=== PATIENT | female | born 1950 | race Caucasian/White ===

== ENCOUNTER 2020-01-11 20:15 | Inpatient (IN) ==
[2020-01-11 20:45] LABS: Basophils # 0.1 K/mcL (0.0-0.2); Basophils % 0.3 %; Eosinophils # 0.1 K/mcL (0.0-0.6); Eosinophils % 0.4 %; Hematocrit 40.1 % (35.3-44.9); Hemoglobin 12.9 g/dL (11.5-15.4); Immature Granulocytes % 0.9 % (0-4); Lymphocytes % 11.4 %; Mean Corpuscular HGB Conc 32.2 g/dL (31.6-35.5); Mean Corpuscular Hemoglobin 27.6 pg (28.0-33.3); Mean Corpuscular Volume 85.7 fL (83.0-100.0); Mean Platelet Volume 8.8 fL (9.4-12.4); Monocytes # 1.2 K/mcL (0.0-1.3); Monocytes % 6.4 %; Neutrophils # 14.4 K/mcL (1.6-8.9); Platelet Count 421 K/mcL (140-400); Red Blood Count 4.68 M/mcL (3.82-4.97); Red Cell Distribution Width 13.2 % (11.5-14.5); Segmented Neutrophils % 80.6 %; White Blood Count 17.9 K/mcL (4.3-11.1)
[2020-01-11] MEDS ORDERED: Isovue-370 500 ML BOTTLE IVP ONE (21:05)
[2020-01-11 21:09] LABS: Alanine Aminotransferase 12 Units/L (7-52); Albumin 3.8 g/dL (3.5-5.7); Albumin/Globulin Ratio 1.1 (1.1-2.2); Alkaline Phosphatase 80 Units/L (34-104); Aspartate Amino Transferase 14 Units/L (13-39); BUN/Creatinine Ratio 19 (6-26); Bilirubin,Direct 0.1 mg/dL (0.0-0.2); Bilirubin,Indirect 0.2 mg/dL (0.0-1.0); Bilirubin,Total 0.3 mg/dL (0.3-1.0); Blood Urea Nitrogen 15 mg/dL (8-23); Calcium 9.6 mg/dL (8.6-10.3); Carbon Dioxide 27 mEq/L (23-29); Chloride 95 mEq/L (98-107); Globulin 3.6 g/dL (2.4-3.5); Glucose 109 mg/dL (70-105); Osmolality,Calculated 281 (280-300); Potassium 3.4 mEq/L (3.5-5.1); Sodium 135 mEq/L (136-145); Total Protein 7.4 g/dL (6.4-8.9); Troponin I < 0.03 ng/mL (< 0.04); eGFR For African Americans > 60 (> 60); eGFR For Non-African Americans > 60 (> 60)
[2020-01-11] MEDS ORDERED: Piperacillin/Tazobactam 3.375 GM in 0.9 % Sodium Chloride Mini Bag 100 ML IVPB ONE (22:21)
[2020-01-11] MEDS ORDERED: Ondansetron 4 MG/2 ML VIAL IVP PRN (23:32)
[2020-01-12] MEDS ORDERED: Naloxone 0.4 MG/ML INJ IVP PRN (01:16)
[2020-01-12] MEDS ORDERED: 0.9 % Sodium Chloride 1,000 ML IVC SCH (01:30)
[2020-01-12] MEDS ORDERED: Azithromycin 500 MG in 0.9 % Sodium Chloride 250 ML IVPB SCH (02:00)
[2020-01-12 02:32] LABS: Basophils % 0.3 %; Eosinophils # 0.1 K/mcL (0.0-0.6); Eosinophils % 0.5 %; Hematocrit 36.9 % (35.3-44.9); Hemoglobin 11.7 g/dL (11.5-15.4); Immature Granulocytes % 0.6 % (0-4); Lymphocytes # 1.7 K/mcL (0.6-4.6); Mean Corpuscular HGB Conc 31.7 g/dL (31.6-35.5); Mean Corpuscular Hemoglobin 27.5 pg (28.0-33.3); Mean Corpuscular Volume 86.6 fL (83.0-100.0); Mean Platelet Volume 8.9 fL (9.4-12.4); Monocytes # 0.9 K/mcL (0.0-1.3); Monocytes % 6.4 %; Neutrophils # 11.5 K/mcL (1.6-8.9); Platelet Count 387 K/mcL (140-400); Red Blood Count 4.26 M/mcL (3.82-4.97); Red Cell Distribution Width 13.3 % (11.5-14.5); Segmented Neutrophils % 80.2 %; White Blood Count 14.4 K/mcL (4.3-11.1)
[2020-01-12 02:33] LABS: INR 1.1
[2020-01-12 02:50] LABS: Alanine Aminotransferase 7 Units/L (7-52); Albumin 2.4 g/dL (3.5-5.7); Albumin/Globulin Ratio 1.1 (1.1-2.2); Alkaline Phosphatase 51 Units/L (34-104); Aspartate Amino Transferase 9 Units/L (13-39); BUN/Creatinine Ratio 22 (6-26); Bilirubin,Total 0.2 mg/dL (0.3-1.0); Blood Urea Nitrogen 10 mg/dL (8-23); Calcium 6.5 mg/dL (8.6-10.3); Carbon Dioxide 24 mEq/L (23-29); Chloride 108 mEq/L (98-107); Globulin 2.2 g/dL (2.4-3.5); Glucose 93 mg/dL (70-105); Osmolality,Calculated 287 (280-300); Potassium 2.7 mEq/L (3.5-5.1); Sodium 139 mEq/L (136-145); Total Protein 4.6 g/dL (6.4-8.9); eGFR For African Americans > 60 (> 60); eGFR For Non-African Americans > 60 (> 60)
[2020-01-12 02:53] LABS: Activated Partial Thrombo Time 25.9 Seconds (26.0-36.0)
[2020-01-12] MEDS ORDERED: Albuterol 2.5 MG/3 ML NEBULIZER IH SCH (04:00)
[2020-01-12] MEDS: Ipratropium 1 PUFF INHALER IH SCH ×6 (04:02→23:03)
[2020-01-12 04:13] LABS: ABG Base Excess 4 mEq/L (-2 to 3); ABG HCO3 31 mEq/L (21-27); ABG Oxygen Saturation 94 % (95-98); ABG PCO2 54 mmHg (35-45); ABG PH 7.36 pH Units (7.32-7.45); ABG PO2 77 mmHg (85-104); ABG TCO2 32 mEq/L (20-26)
[2020-01-12] MEDS ORDERED: Ondansetron 4 MG/2 ML VIAL IVP PRN (06:00)
[2020-01-12] MEDS: Piperacillin/Tazobactam 3.375 GM in 0.9 % Sodium Chloride Mini Bag 100 ML IVPB SCH ×2 (07:35→16:06)
[2020-01-12] MEDS ORDERED: Piperacillin/Tazobactam 3.375 GM in 0.9 % Sodium Chloride Mini Bag 100 ML IVPB SCH (08:00)
[2020-01-12] MEDS ORDERED: *HR* Heparin 5,000 UNIT/ML VIAL SQ SCH (08:00)
[2020-01-12 10:10] LABS: Adenovirus Not Detected (Not Detect); Bordetella Pertussis Not Detected (Not Detect); Chlamydophila pneumoniae Not Detected (Not Detect); Coronavirus 229E Not Detected (Not Detect); Coronavirus HKU1 Not Detected (Not Detect); Coronavirus NL63 Not Detected (Not Detect); Coronavirus OC43 Not Detected (Not Detect); Human Metapneumovirus Not Detected (Not Detect); Human Rhinovirus/Enterovirus Not Detected (Not Detect); Influenza A Subtype 2009 H1 Not Detected (Not Detect); Influenza B Not Detected (Not Detect); Mycoplasma pneumoniae Not Detected (Not Detect); Parainfluenza Virus 1 Not Detected (Not Detect); Parainfluenza Virus 2 Not Detected (Not Detect); Parainfluenza Virus 3 Not Detected (Not Detect); Parainfluenza Virus 4 Not Detected (Not Detect); Respiratory Syncytial Virus Not Detected (Not Detect)
[2020-01-12] MEDS: *HR* OxyCODONE Immed Rel 5 MG TABLET PO PRN ×2 (12:10→22:57)
[2020-01-12] MEDS: Budesonide/Formoterol 160/4.5 1 PUFF INH IH SCH ×2 (15:39→19:48)
[2020-01-12] MEDS: MethylPREDNISolone 40 MG/ML VIAL IVP SCH ×2 (16:06→18:18)
[2020-01-12] MEDS: Aspirin Enteric Coated 81 MG Tablet PO SCH (16:06)
[2020-01-13] MEDS: Piperacillin/Tazobactam 3.375 GM in 0.9 % Sodium Chloride Mini Bag 100 ML IVPB SCH ×2 (00:03→08:48)
[2020-01-13] MEDS: MethylPREDNISolone 40 MG/ML VIAL IVP SCH ×2 (00:05→05:33)
[2020-01-13] MEDS: Ipratropium 1 PUFF INHALER IH SCH ×6 (04:08→23:37)
[2020-01-13 05:07] LABS: Basophils % 0.2 %; Immature Granulocytes % 0.8 % (0-4); Lymphocytes # 0.8 K/mcL (0.6-4.6); Lymphocytes % 6.1 %; Mean Corpuscular HGB Conc 31.6 g/dL (31.6-35.5); Mean Corpuscular Hemoglobin 27.5 pg (28.0-33.3); Mean Corpuscular Volume 87.2 fL (83.0-100.0); Mean Platelet Volume 8.8 fL (9.4-12.4); Monocytes # 0.1 K/mcL (0.0-1.3); Monocytes % 0.6 %; Neutrophils # 12.2 K/mcL (1.6-8.9); Platelet Count 382 K/mcL (140-400); Red Blood Count 4.36 M/mcL (3.82-4.97); Red Cell Distribution Width 13.3 % (11.5-14.5); Segmented Neutrophils % 92.3 %; White Blood Count 13.2 K/mcL (4.3-11.1)
[2020-01-13] MEDS: *HR* Enoxaparin 40 MG/0.4 ML SYRINGE SQ SCH (05:32)
[2020-01-13 06:09] LABS: BUN/Creatinine Ratio 24 (6-26); Blood Urea Nitrogen 14 mg/dL (8-23); Calcium 8.7 mg/dL (8.6-10.3); Carbon Dioxide 26 mEq/L (23-29); Chloride 102 mEq/L (98-107); Glucose 172 mg/dL (70-105); Magnesium 2.2 mg/dL (1.6-2.6); Osmolality,Calculated 281 (280-300); Sodium 133 mEq/L (136-145); eGFR For African Americans > 60 (> 60); eGFR For Non-African Americans > 60 (> 60)
[2020-01-13] MEDS: Budesonide/Formoterol 160/4.5 1 PUFF INH IH SCH ×2 (08:09→19:29)
[2020-01-13] MEDS: amLODIPine 5 MG TABLET PO SCH (08:50)
[2020-01-13] MEDS: Azithromycin 250 MG TABLET PO SCH (08:50)
[2020-01-13] MEDS: predniSONE 20 MG TABLET PO SCH (08:50)
[2020-01-13] MEDS: Aspirin Enteric Coated 81 MG Tablet PO SCH (08:50)
[2020-01-13] MEDS: *HR* OxyCODONE Immed Rel 5 MG TABLET PO PRN (16:15)
[2020-01-13] MEDS ORDERED: Famotidine 20 MG/2 ML VIAL IVP PRN (23:37)
[2020-01-14] MEDS: Ipratropium 1 PUFF INHALER IH SCH ×5 (03:30→19:49)
[2020-01-14] MEDS: *HR* Enoxaparin 40 MG/0.4 ML SYRINGE SQ SCH (05:47)
[2020-01-14] MEDS: Budesonide/Formoterol 160/4.5 1 PUFF INH IH SCH ×2 (07:50→19:50)
[2020-01-14 08:20] LABS: Basophils % 0.3 %; Hematocrit 33.4 % (35.3-44.9); Hemoglobin 10.8 g/dL (11.5-15.4); Immature Granulocytes % 1.5 % (0-4); Lymphocytes # 1.8 K/mcL (0.6-4.6); Lymphocytes % 13.2 %; Mean Corpuscular HGB Conc 32.3 g/dL (31.6-35.5); Mean Corpuscular Hemoglobin 28.3 pg (28.0-33.3); Mean Corpuscular Volume 87.4 fL (83.0-100.0); Mean Platelet Volume 8.6 fL (9.4-12.4); Monocytes # 0.8 K/mcL (0.0-1.3); Monocytes % 5.7 %; Platelet Count 386 K/mcL (140-400); Red Blood Count 3.82 M/mcL (3.82-4.97); Red Cell Distribution Width 13.4 % (11.5-14.5); Segmented Neutrophils % 79.3 %; White Blood Count 13.9 K/mcL (4.3-11.1)
[2020-01-14 08:42] LABS: BUN/Creatinine Ratio 24 (6-26); Blood Urea Nitrogen 12 mg/dL (8-23); Carbon Dioxide 29 mEq/L (23-29); Chloride 100 mEq/L (98-107); Glucose 103 mg/dL (70-105); Osmolality,Calculated 292 (280-300); Potassium 4.1 mEq/L (3.5-5.1); Sodium 141 mEq/L (136-145); eGFR For African Americans > 60 (> 60); eGFR For Non-African Americans > 60 (> 60)
[2020-01-14] MEDS: amLODIPine 5 MG TABLET PO SCH (09:40)
[2020-01-14] MEDS: Aspirin Enteric Coated 81 MG Tablet PO SCH (09:41)
[2020-01-14] MEDS: predniSONE 20 MG TABLET PO SCH (09:50)
[2020-01-14] MEDS: *HR* OxyCODONE Immed Rel 5 MG TABLET PO PRN ×2 (09:50→21:08)
[2020-01-14] MEDS: Azithromycin 250 MG TABLET PO SCH (09:50)
[2020-01-14] MEDS ORDERED: *HR* HYDROmorphone PF 0.5 MG/0.5 ML SYRINGE IVP PRN (11:48)
[2020-01-14] MEDS ORDERED: Ondansetron 4 MG/2 ML VIAL IVP ONE ×2 (11:48→16:26)
[2020-01-14] MEDS ORDERED: *HR* Propofol 200 MG/20 ML VIAL IVP ONE ×3 (12:15→15:18)
[2020-01-14] MEDS ORDERED: *HR* FentaNYL (PF) 100 MCG/2 ML VIAL ONE ×2 (12:17→13:30)
[2020-01-14] MEDS ORDERED: Lidocaine HCL 4 ML Topical Solution (Laryng-O-Jet Kit Sterile Pak) TP ONE (12:18)
[2020-01-14] MEDS ORDERED: *HR* Succinylcholine 200 MG/10 ML VIAL IVP ONE (13:33)
[2020-01-14] MEDS ORDERED: Lidocaine -MPF 2% 2 ML VIAL ONE (13:33)
[2020-01-14] MEDS ORDERED: EPHEDrine 50 MG/ML VIAL ONE (14:51)
[2020-01-14] MEDS ORDERED: Ondansetron 4 MG/2 ML VIAL ONE (14:59)
[2020-01-14] MEDS ORDERED: Dexamethasone 4 MG/ML VIAL ONE (14:59)
[2020-01-14] MEDS ORDERED: *HR* PHENYLEPHRINE 1,000 MCG/10 ML SYRINGE IVP ONE (15:05)
[2020-01-14] MEDS ORDERED: Famotidine 20 MG/2 ML VIAL IVP PRN (16:26)
[2020-01-14] MEDS ORDERED: Ondansetron 4 MG/2 ML VIAL IVP PRN (16:26)
[2020-01-14] MEDS ORDERED: Naloxone 0.4 MG/ML INJ IVP PRN (16:26)
[2020-01-14] MEDS ORDERED: Isovue-370 500 ML BOTTLE IVP ONE (16:28)
[2020-01-14] MEDS ORDERED: Menthol 9.1 MG LOZENGE PO PRN (16:28)
[2020-01-15] MEDS: Ipratropium 1 PUFF INHALER IH SCH ×7 (00:20→23:31)
[2020-01-15] MEDS: *HR* Enoxaparin 40 MG/0.4 ML SYRINGE SQ SCH (05:59)
[2020-01-15] MEDS: Budesonide/Formoterol 160/4.5 1 PUFF INH IH SCH ×2 (07:46→19:45)
[2020-01-15] MEDS: Azithromycin 250 MG TABLET PO SCH (09:37)
[2020-01-15] MEDS: Aspirin Enteric Coated 81 MG Tablet PO SCH (09:38)
[2020-01-15] MEDS: amLODIPine 5 MG TABLET PO SCH (09:38)
[2020-01-15] MEDS: *HR* OxyCODONE Immed Rel 5 MG TABLET PO PRN ×3 (09:38→20:50)
[2020-01-15] MEDS: predniSONE 20 MG TABLET PO SCH (09:38)
[2020-01-16] MEDS: Ipratropium 1 PUFF INHALER IH SCH ×4 (03:36→16:19)
[2020-01-16] MEDS: *HR* Enoxaparin 40 MG/0.4 ML SYRINGE SQ SCH (05:47)
[2020-01-16] MEDS: Budesonide/Formoterol 160/4.5 1 PUFF INH IH SCH (07:41)
[2020-01-16] MEDS: predniSONE 20 MG TABLET PO SCH (10:04)
[2020-01-16] MEDS: Azithromycin 250 MG TABLET PO SCH (10:04)
[2020-01-16] MEDS: amLODIPine 5 MG TABLET PO SCH (10:05)
[2020-01-16] MEDS: Aspirin Enteric Coated 81 MG Tablet PO SCH (10:05)
[2020-01-16] MEDS: *HR* OxyCODONE Immed Rel 5 MG TABLET PO PRN (11:18)
[2020-01-16 15:14] VITALS: BP 108/68
[2020-01-16] MEDS ORDERED: Aminoglycoside Consult 1 EACH MC ONE (16:27)
[2020-01-17 10:47] LABS: Immunoglobulin A 213 mg/dL (68-408); Immunoglobulin G 625 mg/dL (768-1632); Immunoglobulin M 126 mg/dL (35-263)
== END 2020-01-16 16:28 | disposition home health service (06) | DRG 853 ==
LOC: 2NENU 20:15 → EMEROOARM 20:15 → SUATTDRO 01-12 01:16 → 2NENU 01-12 01:16 → 3ANU 01-13 22:15
PROVIDERS: ADMIT Student in an Organized Health Care Education/Training Program; ATTEND Internal Medicine

== ENCOUNTER 2021-05-28 12:59 | Inpatient (IN) ==
[2021-05-28 15:28] LABS: Basophils % 0.3 %; Eosinophils # 0.1 K/mcL (0.0-0.6); Hematocrit 41.4 % (35.3-44.9); Hemoglobin 13.5 g/dL (11.5-15.4); Immature Granulocytes % 0.4 % (0-4); Lymphocytes # 1.6 K/mcL (0.6-4.6); Lymphocytes % 24.1 %; Mean Corpuscular HGB Conc 32.6 g/dL (31.6-35.5); Mean Corpuscular Hemoglobin 28.1 pg (28.0-33.3); Mean Corpuscular Volume 86.1 fL (83.0-100.0); Mean Platelet Volume 8.7 fL (9.4-12.4); Monocytes # 0.5 K/mcL (0.0-1.3); Monocytes % 7.7 %; Neutrophils # 4.5 K/mcL (1.6-8.9); Platelet Count 260 K/mcL (140-400); Red Blood Count 4.81 M/mcL (3.82-4.97); Red Cell Distribution Width 13.4 % (11.5-14.5); Segmented Neutrophils % 66.5 %; White Blood Count 6.7 K/mcL (4.3-11.1)
[2021-05-28 15:42] LABS: Bilirubin,Urine Negative (Negative); Blood,Urine Trace (Negative); Clarity,Urine Clear (Clear); Color,Urine Light-Yellow (Yellow); Glucose,Urine (UA) Normal (Normal); Ketones,Urine Negative (Negative); Leukocyte Esterase,Urine Negative (Negative); Mucus,Urine Few per lpf (None-Few); Nitrite,Urine Negative (Negative); Protein,Urine Trace mg/dL (Neg-Trace); RBC,Urine 0-3 per hpf (0-3); Specific Gravity,Urine 1.029 (1.010-1.025); Squamous Epithelial Cell,Urine Few per hpf (None-Few); Urobilinogen,Urine Normal (Normal); WBC,Urine 0-3 per hpf (0-3)
[2021-05-28 16:15] LABS: Amphetamine Screen,Urine Negative ng/mL (Cutoff=1000); Barbiturate Screen,Urine Negative ng/mL (Cutoff=200); Benzodiazepines Screen,Urine Negative ng/mL (Cutoff=200); Cannabinoid Screen,Urine Negative ng/mL (Cutoff = 50); Cocaine Screen,Urine Negative ng/mL (Cutoff= 300); Opiate Screen,Urine Negative ng/mL (Cutoff=300); Phencyclidine Screen,Urine Negative ng/mL (Cutoff=25)
[2021-05-28 16:25] LABS: Alanine Aminotransferase 13 Units/L (7-52); Albumin 4.2 g/dL (3.5-5.7); Alkaline Phosphatase 51 Units/L (34-104); Aspartate Amino Transferase 14 Units/L (13-39); BUN/Creatinine Ratio 38 (6-26); Bilirubin,Direct 0.1 mg/dL (0.0-0.2); Bilirubin,Indirect 0.3 mg/dL (0.0-1.0); Bilirubin,Total 0.4 mg/dL (0.3-1.0); Blood Urea Nitrogen 23 mg/dL (8-23); Calcium 9.9 mg/dL (8.6-10.3); Carbon Dioxide 30 mEq/L (23-29); Chloride 104 mEq/L (98-107); Ethanol < 10 mg/dL (Less than 10); Glucose 100 mg/dL (70-105); Osmolality,Calculated 296 (280-300); Potassium 3.8 mEq/L (3.5-5.1); Sodium 141 mEq/L (136-145); Thyroid Stimulating Hormone 0.792 mcIU/mL (0.340-5.600); Troponin I < 0.03 ng/mL (< 0.04); eGFR For African Americans > 60 (> 60); eGFR For Non-African Americans > 60 (> 60)
[2021-05-28 16:29] LABS: Influenza A PCR Negative (Negative); Influenza B PCR Negative (Negative); Resp. Syncytial Virus PCR Negative (Negative)
[2021-05-28 16:31] LABS: SARS-CoV-2 by PCR (In House) Negative (Negative)
[2021-05-28 17:17] LABS: Albumin/Globulin Ratio 1.5 (1.1-2.2); Globulin 2.8 g/dL (2.4-3.5)
[2021-05-28] MEDS ORDERED: Ipratropium/Albuterol Neb 3 ML ONE (17:48)
[2021-05-28] MEDS ORDERED: Perflutren Lipid Microsphere 1.3 ML in 0.9 % Sodium Chloride 8.7 ML IVP PRN (20:54)
[2021-05-28] MEDS ORDERED: Aspirin 325 MG TABLET PO ONE (21:33)
[2021-05-28] MEDS ORDERED: Budesonide/Formoterol 160/4.5 1 PUFF INH IH ONE (22:00)
[2021-05-29] MEDS ORDERED: Aspirin 325 MG TABLET PO ONE (00:47)
[2021-05-29 05:52] LABS: Hematocrit 37.1 % (35.3-44.9); Hemoglobin 12.1 g/dL (11.5-15.4); Mean Corpuscular HGB Conc 32.6 g/dL (31.6-35.5); Mean Corpuscular Hemoglobin 28.1 pg (28.0-33.3); Mean Corpuscular Volume 86.3 fL (83.0-100.0); Mean Platelet Volume 8.7 fL (9.4-12.4); Platelet Count 257 K/mcL (140-400); Red Cell Distribution Width 13.3 % (11.5-14.5); White Blood Count 5.9 K/mcL (4.3-11.1)
[2021-05-29 06:04] LABS: BUN/Creatinine Ratio 33 (6-26); Blood Urea Nitrogen 18 mg/dL (8-23); Calcium 9.2 mg/dL (8.6-10.3); Carbon Dioxide 27 mEq/L (23-29); Chloride 103 mEq/L (98-107); Chol/HDL Ratio 3.3 (0-4.9); Cholesterol 186 mg/dL (< 200); Glucose 91 mg/dL (70-105); HDL Cholesterol 56 mg/dL (40-59); LDL Cholesterol,Calculated 117 mg/dL (< 100); Osmolality,Calculated 285 (280-300); Potassium 3.7 mEq/L (3.5-5.1); Sodium 137 mEq/L (136-145); Triglycerides 67 mg/dL (< 150); eGFR For African Americans > 60 (> 60); eGFR For Non-African Americans > 60 (> 60)
[2021-05-29] MEDS ORDERED: Aspirin Enteric Coated 325 MG Tablet PO SCH (09:00)
[2021-05-29 09:19] LABS: Estimated Average Glucose 131 mg/dl; Hemoglobin A1C 6.2 %
[2021-05-30] MEDS: *HR* Enoxaparin 40 MG/0.4 ML SYRINGE SQ SCH (06:16)
[2021-05-30] MEDS ORDERED: Furosemide 20 MG TABLET PO PRN (07:31)
[2021-05-30] MEDS ORDERED: *HR* FentaNYL PATCH 25 MCG PATCH TD SCH (07:45)
[2021-05-30] MEDS ORDERED: Aspirin Enteric Coated 81 MG Tablet PO SCH (09:00)
[2021-05-30] MEDS: Anastrozole 1 MG TABLET PO SCH (09:22)
[2021-05-30] MEDS: amLODIPine 5 MG TABLET PO SCH (09:23)
[2021-05-30] MEDS ORDERED: Aspirin Enteric Coated 81 MG Tablet PO ONE (12:00)
[2021-05-30] MEDS: Budesonide/Formoterol 80/4.5 1 PUFF INH IH SCH ×2 (17:38→20:19)
[2021-05-31] MEDS: *HR* Enoxaparin 40 MG/0.4 ML SYRINGE SQ SCH (05:19)
[2021-05-31] MEDS: Budesonide/Formoterol 80/4.5 1 PUFF INH IH SCH (07:36)
[2021-05-31 07:39] VITALS: O2SAT 94
[2021-05-31] MEDS: amLODIPine 5 MG TABLET PO SCH (08:46)
[2021-05-31] MEDS: Anastrozole 1 MG TABLET PO SCH (08:46)
[2021-05-31] MEDS ORDERED: Aspirin Enteric Coated 325 MG Tablet PO SCH (09:00)
[2021-05-31 12:21] VITALS: BP 136/81; PULSE 91; TEMP 97.9
== END 2021-05-31 14:56 | disposition home or self-care (01) | DRG 65 ==
LOC: EMEROOARM 12:59 → 2ANU 12:59 → SUATTDRO 23:03 → 2ANU 23:40
PROVIDERS: ADMIT Internal Medicine; ATTEND Hospitalist

== ENCOUNTER 2021-06-24 08:53 | Inpatient (IN) ==
[~2021-06-24 08:53] MED LIST: Vancomycin 1,000 MG, Sodium Chloride IRRigation 1,000 ML IR ONE
[2021-06-24] MEDS ORDERED: CeFAZolin Syr 2,000MG/20 ML 2,000 MG/20 ML SYRINGE IVPB ONE (09:25)
[2021-06-24] MEDS ORDERED: Famotidine 20 MG/2 ML VIAL IVP ONE (09:28)
[2021-06-24] MEDS ORDERED: Acetaminophen IV 1,000 MG/100 ML BAG IVPB ONE (09:29)
[2021-06-24] MEDS ORDERED: Ringers Solution, Lactated 1,000 ML IVC SCH (09:30)
[2021-06-24] MEDS ORDERED: Vancomycin 1,250 MG/262.5 ML IV.SOLN IVPB ONE (09:45)
[2021-06-24] MEDS ORDERED: Lidocaine -MPF 2% 5 ML VIAL ONE ×2 (10:41→11:14)
[2021-06-24] MEDS ORDERED: *HR* FentaNYL (PF) 100 MCG/2 ML VIAL ONE ×2 (10:46→11:47)
[2021-06-24] MEDS ORDERED: Heparin 1,000 UNITS/500 mL 500 ML ONE ×2 (10:50→11:31)
[2021-06-24] MEDS ORDERED: *HR* Propofol 200 MG/20 ML VIAL IVP ONE (11:13)
[2021-06-24] MEDS ORDERED: Ondansetron 4 MG/2 ML VIAL ONE (11:14)
[2021-06-24] MEDS ORDERED: *HR* Succinylcholine 200 MG/10 ML VIAL IVP ONE (11:14)
[2021-06-24] MEDS ORDERED: *HR* Heparin 5,000 UNIT/ML VIAL ONE (11:14)
[2021-06-24] MEDS ORDERED: *HR* Norepinephrine 4 MG/4 ML VIAL IVC ONE (11:29)
[2021-06-24] MEDS ORDERED: *HR* Vasopressin 20 UNIT/ML VIAL ONE (11:29)
[2021-06-24] MEDS ORDERED: Protamine Sulfate 50 MG/5 ML VIAL IVP ONE (11:30)
[2021-06-24] MEDS ORDERED: Bupivacaine-MPF 0.25% 10 ML VIAL ONE (11:31)
[2021-06-24] MEDS ORDERED: *HR* Midazolam HCl 2 MG/2 ML VIAL ONE (11:47)
[2021-06-24] MEDS ORDERED: EPHEDrine 50 MG/ML VIAL ONE (12:36)
[2021-06-24] MEDS ORDERED: *HR* Rocuronium Bromide 50 MG/5 ML VIAL ONE (13:13)
[2021-06-24] MEDS ORDERED: Sugammadex Sodium 200 MG/2 ML VIAL IV ONE ×2 (13:38→13:53)
[2021-06-24] MEDS ORDERED: NiCARdipine 2.5 MG/10 ML Syringe IVPB ONE (13:42)
[2021-06-24] MEDS ORDERED: *HR* Labetalol 20 MG/4 ML SYRINGE IVP ONE (14:14)
[2021-06-24] MEDS ORDERED: Naloxone 0.4 MG/ML INJ IVP PRN (15:19)
[2021-06-24] MEDS ORDERED: *HR* OxyCODONE Immed Rel 5 MG TABLET PO PRN (15:19)
[2021-06-24] MEDS ORDERED: *HR* HYDROcodone/Acet 5/325 mg TABLET PO PRN (15:19)
[2021-06-24] MEDS ORDERED: 0.9 % Sodium Chloride 1,000 ML IVC SCH (15:19)
[2021-06-24] MEDS ORDERED: *HR* Labetalol 20 MG/4 ML SYRINGE IVP PRN (15:19)
[2021-06-24] MEDS ORDERED: Furosemide 20 MG TABLET PO PRN (15:19)
[2021-06-24] MEDS ORDERED: Ondansetron 4 MG/2 ML VIAL IVP PRN (15:19)
[2021-06-24] MEDS ORDERED: Acetaminophen 325 MG TABLET PO PRN (15:19)
[2021-06-24] MEDS: *HR* Metoprolol 5 MG/5 ML VIAL IVP SCH ×3 (17:55→23:02)
[2021-06-24] MEDS: CeFAZolin 2 GM/120 ML BAG IVPB SCH (19:27)
[2021-06-24] MEDS ORDERED: NON-FORMULARY MEDICATION 1 EACH EACH (Fluticasone/Salmeterol [Advair Hfa 115-21 Mcg Inhale PO SCH (21:00)
[2021-06-24] MEDS: Budesonide/Formoterol 80/4.5 1 PUFF INH IH SCH (21:39)
[2021-06-25] MEDS ORDERED: Vancomycin 1,250 MG/262.5 ML IV.SOLN IVPB ONE (01:00)
[2021-06-25] MEDS: CeFAZolin 2 GM/120 ML BAG IVPB SCH (03:49)
[2021-06-25 04:01] VITALS: TEMP 97.7
[2021-06-25] MEDS ORDERED: *HR* Heparin 5,000 UNIT/ML VIAL SQ SCH ×2 (06:00)
[2021-06-25] MEDS: *HR* Metoprolol 5 MG/5 ML VIAL IVP SCH ×2 (06:30→12:40)
[2021-06-25 08:05] VITALS: O2SAT 93
[2021-06-25] MEDS ORDERED: Cholecalciferol (D-3) 1,000 UNIT (25MCG) TABLET PO SCH (09:00)
[2021-06-25] MEDS ORDERED: Anastrozole 1 MG TABLET PO SCH (09:00)
[2021-06-25] MEDS ORDERED: Aspirin Enteric Coated 325 MG Tablet PO SCH (09:00)
[2021-06-25] MEDS ORDERED: amLODIPine 5 MG TABLET PO SCH (09:00)
[2021-06-25] MEDS: Budesonide/Formoterol 80/4.5 1 PUFF INH IH SCH (10:58)
[2021-06-25 11:04] VITALS: BP 132/41; PULSE 72
[2021-06-27] MEDS ORDERED: *HR* FentaNYL PATCH 25 MCG PATCH TD SCH (09:00)
[2021-06-27] MEDS ORDERED: *HR* FentaNYL PATCH 12 MCG PATCH TD SCH (09:00)
== END 2021-06-25 15:00 | disposition home or self-care (01) | DRG 39 ==
LOC: SAMDAY 08:53 → 2NNU 15:18
PROVIDERS: ADMIT Surgery; ATTEND Surgery